=== PATIENT | male | born 1945 | race Asian ===

== ENCOUNTER 2017-06-14 07:54 | Emergency (ER) | payer MEDICARE, OTHER ==
[~2017-06-14] VITALS: Ht 167.6 cm; Wt 72.6 kg
--- NOTE | 2017-06-14 08:16 | NUR ---
TO ED DT PT UNABLE TO URINATE FOR 3-4 HOURS. PATIENT CO PRESSURE LIKE PAIN ON LOWER ABDOMEN/BLADDER. PATIENT IS AFEBRILE. VSS
[2017-06-14] MEDS ORDERED: LIDOCAINE 2% JEL UROJET 10 ML MM ONE (08:18)
--- NOTE | 2017-06-14 08:38 | NUR ---
URINE SAMPLE COLLECTED SENT TO LAB
[2017-06-14 08:46] LABS: APPEARANCE,URINE CLEAR (CLEAR); BILIRUBIN,URINE NEGATIVE (NEGATIVE); BLOOD, URINE TRACE Ery/uL (NEGATIVE); COLOR,URINE YELLOW (YELLOW); KETONES,URINE NEGATIVE (NEGATIVE); LEUKOCYTE ESTERASE ,URINE NEGATIVE (NEGATIVE); NITRITE, URINE NEGATIVE (NEGATIVE); PROTEIN,URINE NEGATIVE (NEGATIVE); UGLUCOSE NEGATIVE (NEGATIVE); UROBILINOGEN,URINE 0.2 EU/dL (0.2)
[2017-06-14 09:09] LABS: SQUAMOUS EPITHELIAL CELL,UR 0-2 /HPF (None Seen); WBC,URINE 0-2 /HPF (0-3)
[2017-06-14 09:10] LABS: BACTERIA,URINE Rare /HPF (None Seen)
[2017-06-14 10:01] VITALS: BP 137/84
== END 2017-06-14 10:10 | disposition home or self-care (01) ==
LOC: ER 07:59
DX: R33.9 Retention of urine, unspecified (principal)
CPT/HCPCS: 81000-TC; 87086-TC; A4606; J3490; Z7610

== ENCOUNTER 2017-06-16 07:42 | Emergency (ER) | payer MEDICARE, OTHER ==
[~2017-06-16] VITALS: Ht 167.6 cm; Wt 72.6 kg
[2017-06-16 07:47] VITALS: BP 116/59
== END 2017-06-16 08:39 | disposition home or self-care (01) ==
LOC: ER 07:46
DX: N39.0 Urinary tract infection, site not specified (principal)
CPT/HCPCS: 99281; A4606; Z7502; Z7610

== ENCOUNTER 2018-11-27 09:05 | Emergency (ER) | payer MEDICARE, OTHER ==
[~2018-11-27] VITALS: Ht 167.6 cm; Wt 70.8 kg
[2018-11-27 09:51] VITALS: BP 134/77
--- NOTE | 2018-11-27 10:00 | NUR ---
TARIQ CATH REMOVE. NO NOTED PAIN OR BLEEDING.
== END 2018-11-27 10:19 | disposition home or self-care (01) ==
LOC: ER 09:06
DX: Z46.6 Encounter for fitting and adjustment of urinary device (principal); Z60.2 Problems related to living alone
CPT/HCPCS: 99281; A4606; Z7502

== ENCOUNTER 2020-04-19 14:27 | Emergency (ER) | payer MEDICARE, OTHER ==
[~2020-04-19] VITALS: Ht 167.6 cm; Wt 72.6 kg
[2020-04-19 14:43] VITALS: BP 115/70
--- NOTE | 2020-04-19 14:46 | NUR ---
THE PATIENT WENT TO ER TODAY - TO HAVE HIS TARIQ REMOVED
--- NOTE | 2020-04-19 14:47 | NUR ---
F/C REMOVED. PT TOLERATED PROCEDURE WELL.
--- NOTE | 2020-04-19 15:15 | NUR ---
D/C HOME IN STABLE CONDITION.
== END 2020-04-19 15:17 | disposition home or self-care (01) ==
LOC: ER 14:32
DX: R33.9 Retention of urine, unspecified (principal); Z46.6 Encounter for fitting and adjustment of urinary device; Z60.2 Problems related to living alone

== ENCOUNTER 2020-06-16 04:08 | Emergency (ER) | payer MEDICARE, OTHER ==
[~2020-06-16] VITALS: Ht 167.6 cm; Wt 72.6 kg
--- NOTE | 2020-06-16 04:15 | NUR ---
BIBSELF C/O URINARY RETENTION AND DYSURIA X2HR FINISHING INSPECTOR
[2020-06-16 04:47] LABS: APPEARANCE,URINE CLEAR (CLEAR); BILIRUBIN,URINE NEGATIVE (NEGATIVE); BLOOD, URINE SMALL Ery/uL (NEGATIVE); COLOR,URINE YELLOW (YELLOW); KETONES,URINE NEGATIVE (NEGATIVE); LEUKOCYTE ESTERASE ,URINE NEGATIVE (NEGATIVE); NITRITE, URINE NEGATIVE (NEGATIVE); PROTEIN,URINE NEGATIVE (NEGATIVE); UGLUCOSE NEGATIVE (NEGATIVE); UROBILINOGEN,URINE 0.2 EU/dL (0.2)
--- NOTE | 2020-06-16 05:27 | NUR ---
Patient discharged to home in stable condition. Written and verbal after care instructions given. Patient verbalizes understanding of instruction. ambulatory with a steady gait noted. pt aaox4 no acute distress noted, resp even and unlabored. f/c converted to a leg bag per pt request.
[2020-06-16 05:28] VITALS: BP 137/76
== END 2020-06-16 05:29 | disposition home or self-care (01) ==
LOC: ER 04:10
DX: R33.9 Retention of urine, unspecified (principal); Z60.2 Problems related to living alone
CPT/HCPCS: 81000-TC

== ENCOUNTER 2020-06-19 09:21 | Emergency (ER) | payer MEDICARE, OTHER ==
[~2020-06-19] VITALS: Ht 167.6 cm; Wt 72.6 kg
[2020-06-19 09:26] VITALS: BP 152/85
--- NOTE | 2020-06-19 09:28 | NUR ---
AT BEDSIDE FOR EVAL.
--- NOTE | 2020-06-19 09:30 | NUR ---
TARIQ CATH REMOVE. PT ABLE TO URINATE. AWARE.
--- NOTE | 2020-06-19 09:37 | NUR ---
Patient discharged to home in stable condition. Written and verbal after care instructions given. Patient verbalizes understanding of instruction.
== END 2020-06-19 09:40 | disposition home or self-care (01) ==
LOC: ER 09:25
DX: Z46.6 Encounter for fitting and adjustment of urinary device (principal); R33.9 Retention of urine, unspecified; Z60.2 Problems related to living alone

== ENCOUNTER 2020-07-29 06:51 | Emergency (ER) | payer MEDICARE, OTHER ==
[~2020-07-29] VITALS: Ht 167.6 cm; Wt 72.6 kg
[2020-07-29 06:51] VITALS: BP 123/85
[2020-07-29] MEDS ORDERED: LIDOCAINE 2% JEL UROJET 10 ML MM ONE (07:08)
--- NOTE | 2020-07-29 07:12 | NUR ---
PATIENT CAME TO ER BED 16 C/O URINARY RETENTION WITH VERY MINIMAL URINE OUTPUT. PATIENT IS REQUESTING A CATHETER FOR RELIEF. PATIENT IS AAOX4. AMBULATORY WITH A STEADY GAIT. BREATHING EVENLY AND UNLABORED ON ROOM AIR.
[2020-07-29 08:08] LABS: APPEARANCE,URINE CLEAR (CLEAR); BILIRUBIN,URINE NEGATIVE (NEGATIVE); BLOOD, URINE NEGATIVE Ery/uL (NEGATIVE); COLOR,URINE YELLOW (YELLOW); KETONES,URINE NEGATIVE (NEGATIVE); LEUKOCYTE ESTERASE ,URINE NEGATIVE (NEGATIVE); NITRITE, URINE NEGATIVE (NEGATIVE); PROTEIN,URINE NEGATIVE (NEGATIVE); UGLUCOSE NEGATIVE (NEGATIVE); UROBILINOGEN,URINE 0.2 EU/dL (0.2)
--- NOTE | 2020-07-29 08:23 | NUR ---
Patient discharged to home in stable condition. Written and verbal after care instructions given. Patient verbalizes understanding of instruction.
[2020-07-30] MEDS ORDERED: Magnesium 1GM/D5W 100ML PREMIX 0 ML IV ONE (11:01)
[2020-07-30] MEDS ORDERED: NITROGLYCERIN PACKET 1 GM PACKET ONE (11:01)
[2020-07-30] MEDS ORDERED: methylPREDNISolone SOD SUCC 125 MG/2ML VIAL ONE (11:01)
[2020-07-30] MEDS ORDERED: FUROSEMIDE 40 MG/4 ML VIAL ONE (11:01)
== END 2020-07-29 08:25 | disposition home or self-care (01) ==
LOC: ER 06:55
DX: R33.9 Retention of urine, unspecified (principal); Z60.2 Problems related to living alone
CPT/HCPCS: 51702; 81001; 99284; J3490; 81000-TC; J1940; J2930; J3475

== ENCOUNTER 2020-07-31 08:09 | Emergency (ER) | payer MEDICARE, OTHER ==
[~2020-07-31] VITALS: Ht 167.6 cm; Wt 72.6 kg
--- NOTE | 2020-07-31 08:20 | NUR ---
PT CAME FROM HOME, HERE FOR TARIQ CATHETER REMOVAL, WAS HERE 2 DAYS AGO. MD AT BEDSIDE WITH VERBAL ORDER TO REMOVE TARIQ CATHETER. NOTED
--- NOTE | 2020-07-31 08:23 | NUR ---
TARIQ CATHETER REMOVED. AWAITING FOR PT TO URINATE
[2020-07-31 09:15] VITALS: BP 119/75
== END 2020-07-31 09:38 | disposition home or self-care (01) ==
LOC: ER 08:11
DX: R33.9 Retention of urine, unspecified (principal); Z60.2 Problems related to living alone

== ENCOUNTER 2021-03-23 09:23 | Emergency (ER) | payer MEDICARE, OTHER ==
[~2021-03-23] VITALS: Ht 167.6 cm; Wt 72.6 kg
--- NOTE | 2021-03-23 09:31 | NUR ---
PT TO ED BED 13 C/O BLADDER FULLNESS AND PAIN SINCE 3AM. STATES UNABLE TO URINATE SINCE. PT SEEN IN ED MULTIPLE TIME FOR SAME REASON. PT IS AAO, NAD NOTED. AWAITING MD BROWN.
--- NOTE | 2021-03-23 10:01 | NUR ---
DR MAXWELL AT BEDSIDE FOR EVAL.
--- NOTE | 2021-03-23 10:15 | NUR ---
F/C CATHETER INSERTED. URINE SAMPLE COLLECTED AND SENT.
[2021-03-23 10:28] LABS: BASOPHILS % (AUTO) 0.6 % (0.0-2.0); EOSINOPHILS % (AUTO) 1.1 % (0.0-6.0); HEMATOCRIT 40 % (39-51); HEMOGLOBIN 13.5 g/dL (13.5-17.5); LYMPHOCYTES % (AUTO) 31.5 % (20.0-44.0); MEAN CORPUSCULAR HGB CONC 34 g/dl (31.0-36.0); MEAN CORPUSCULAR VOLUME 96 fL (80-96); MONOCYTES # (AUTO) 0.4 /CMM (0.1-1.30); MONOCYTES % (AUTO) 6.8 % (2.0-12.0); NEUTROPHILS # (AUTO) 3.8 /CMM (1.8-8.9); PLATELET COUNT (AUTO) 227 /CMM (150-450); RED BLOOD CELL COUNT(AUTO) 4.18 MIL/uL (4.5-6.0); WHITE BLOOD COUNT (AUTO) 6.4 K/uL (4.3-11.0)
[2021-03-23 10:29] LABS: BILIRUBIN,URINE Negative (NEGATIVE); COLOR,URINE YELLOW (YELLOW); LEUKOCYTE ESTERASE ,URINE Negative (NEGATIVE); NITRITE, URINE Negative (NEGATIVE); PROTEIN,URINE Negative (NEGATIVE); UGLUCOSE Negative (NEGATIVE); UROBILINOGEN,URINE 0.2 EU/dL (0.2)
[2021-03-23 10:32] LABS: CALCIUM, SERUM 7.9 mg/dL (8.5-10.1); CREATININE 1.1 mg/dL (0.6-1.3); POTASSIUM 4.2 mmol/L (3.5-5.1)
[2021-03-23 10:34] LABS: BACTERIA,URINE None seen /HPF (None Seen); SQUAMOUS EPITHELIAL CELL,UR Few /HPF (None Seen); WBC,URINE 0-2 /HPF (0-3)
[2021-03-23 12:26] VITALS: BP 132/77
--- NOTE | 2021-03-23 12:26 | NUR ---
Patient discharged to home in stable condition. Written and verbal after care instructions given. Patient verbalizes understanding of instruction. pt discharge home w/ f/c and leg bag.
== END 2021-03-23 12:27 | disposition home or self-care (01) ==
LOC: ER 09:27
DX: R33.9 Retention of urine, unspecified (principal); Z60.2 Problems related to living alone
CPT/HCPCS: 36415; 80048-TC; 81001; 85025-TC

== ENCOUNTER 2021-03-25 10:19 | Emergency (ER) | payer MEDICARE, OTHER ==
[~2021-03-25] VITALS: Ht 167.6 cm; Wt 72.6 kg
[2021-03-25 10:21] VITALS: BP 135/81
--- NOTE | 2021-03-25 10:40 | NUR ---
TARIQ CATH REMOVED ORDERED BY GENE PAIZ.
--- NOTE | 2021-03-25 10:47 | NUR ---
Patient discharged to home in stable condition. Written and verbal after care instructions given. Patient verbalizes understanding of instruction.
== END 2021-03-25 10:47 | disposition home or self-care (01) ==
LOC: ER 10:19
DX: Z46.6 Encounter for fitting and adjustment of urinary device (principal); Z60.2 Problems related to living alone

== ENCOUNTER 2021-05-27 06:01 | Emergency (ER) | payer MEDICARE, OTHER ==
[~2021-05-27] VITALS: Ht 167.6 cm; Wt 72.6 kg
[2021-05-27 06:39] VITALS: BP 134/69
== END 2021-05-27 06:43 | disposition home or self-care (01) ==
LOC: ER 06:01
DX: R33.9 Retention of urine, unspecified (principal); Z60.2 Problems related to living alone

== ENCOUNTER 2021-05-29 08:17 | Emergency (ER) | payer MEDICARE, OTHER ==
[~2021-05-29] VITALS: Ht 167.6 cm; Wt 72.6 kg
[2021-05-29 08:25] VITALS: BP 124/69
--- NOTE | 2021-05-29 08:42 | NUR ---
Patient discharged to home in stable condition. Written and verbal after care instructions given. Patient verbalizes understanding of instruction.
== END 2021-05-29 08:42 | disposition home or self-care (01) ==
LOC: ER 08:17
DX: Z46.6 Encounter for fitting and adjustment of urinary device (principal); R33.9 Retention of urine, unspecified; Z60.2 Problems related to living alone

== ENCOUNTER 2021-09-14 08:08 | Emergency (ER) | payer MEDICARE, OTHER ==
[~2021-09-14] VITALS: Ht 167.6 cm; Wt 72.6 kg
--- NOTE | 2021-09-14 08:08 | NUR ---
BIBSELF C/O URINARY RETENTION SINCE 299 TODAY, PAIN OF 8/10. VITAL SIGNS WIHTIN NORMAL LIMITS. BREATHING IS REGULAR AND UNLABORED. PT SENT TO ER BED 6. WAITING FOR MD BROWN.
--- NOTE | 2021-09-14 08:40 | NUR ---
DR BRITT AT BEDSIDE
[2021-09-14 09:02] LABS: BASOPHILS % (AUTO) 0.6 % (0.0-2.0); EOSINOPHILS % (AUTO) 1.5 % (0.0-6.0); HEMATOCRIT 41 % (39-51); HEMOGLOBIN 13.8 g/dL (13.5-17.5); LYMPHOCYTES # (AUTO) 1.4 K/uL (0.8-4.8); LYMPHOCYTES % (AUTO) 22.8 % (20.0-44.0); MEAN CORPUSCULAR HGB CONC 34 g/dl (31.0-36.0); MEAN CORPUSCULAR VOLUME 96 fL (80-96); MONOCYTES # (AUTO) 0.5 K/uL (0.1-1.30); MONOCYTES % (AUTO) 8.3 % (2.0-12.0); NEUTROPHILS # (AUTO) 4.2 K/uL (1.8-8.9); NEUTROPHILS % (AUTO) 66.8 % (43.0-81.0); PLATELET COUNT (AUTO) 234 K/uL (150-450); WHITE BLOOD COUNT (AUTO) 6.3 K/uL (4.3-11.0)
--- NOTE | 2021-09-14 09:22 | NUR ---
URINARY CATHETER WITH LEG BAG WAS PLACED.
[2021-09-14 09:53] LABS: BILIRUBIN,URINE Negative (NEGATIVE); COLOR,URINE YELLOW (YELLOW); LEUKOCYTE ESTERASE ,URINE Negative (NEGATIVE); NITRITE, URINE Negative (NEGATIVE); PH,URINE 5.5 (5.0-8.0); PROTEIN,URINE Negative (NEGATIVE); UGLUCOSE Negative (NEGATIVE); UROBILINOGEN,URINE 0.2 EU/dL (0.2)
--- NOTE | 2021-09-14 10:12 | NUR ---
Patient discharged to home in stable condition. Written and verbal after care instructions given. Patient verbalizes understanding of instruction.
[2021-09-14 10:13] VITALS: BP 122/81
[2021-09-14 10:18] LABS: BACTERIA,URINE Few /HPF (None Seen); SQUAMOUS EPITHELIAL CELL,UR Few /HPF (None Seen); WBC,URINE 0-2 /HPF (0-3)
== END 2021-09-14 10:14 | disposition home or self-care (01) ==
LOC: ER 08:39
DX: R33.9 Retention of urine, unspecified (principal); Z60.2 Problems related to living alone
CPT/HCPCS: 36415; 80048-TC; 81001; 85025-TC

== ENCOUNTER 2021-09-16 13:48 | Emergency (ER) | payer MEDICARE, OTHER ==
[~2021-09-16] VITALS: Ht 167.6 cm; Wt 72.6 kg
[2021-09-16 13:59] VITALS: BP 126/68
--- NOTE | 2021-09-16 14:28 | NUR ---
REMOVED TARIQ CATHETER PER ERMD ORDER, PT NICOLASA WELL.
--- NOTE | 2021-09-16 14:38 | NUR ---
Patient discharged to home in stable condition. Written and verbal after care instructions given. Patient verbalizes understanding of instruction.
== END 2021-09-16 14:38 | disposition home or self-care (01) ==
LOC: ER 13:52
DX: Z46.6 Encounter for fitting and adjustment of urinary device (principal); R33.9 Retention of urine, unspecified; Z60.2 Problems related to living alone

== ENCOUNTER 2021-09-23 04:45 | Emergency (ER) | payer MEDICARE, OTHER ==
[~2021-09-23] VITALS: Ht 175.3 cm; Wt 86.2 kg
[2021-09-23] MEDS ORDERED: LIDOCAINE 2% JEL UROJET 10 ML MM ONE (05:26)
--- NOTE | 2021-09-23 05:30 | NUR ---
BIB SELF PT A/O X 3 C/O URINE RETENTION SINCE 2 AM. PT REQUESTING MALE NURSE FOR TARIQ CATH PLACEMENT
--- NOTE | 2021-09-23 05:45 | NUR ---
TARIQ CATHETER INSERTED PER MD ORDER, PATENT AND DRAINING TO A CLEAR, YELLOW OUTPUT, TOTAL OF 500 ML COLLECTED. ASEPTIC TECHNIQUE WAS OBSERVED. URINE SAMPLE COLLECTED AND SENT TO LAB.
--- NOTE | 2021-09-23 05:51 | NUR ---
LAB AT BEDSIDE
[2021-09-23 06:18] LABS: BILIRUBIN,URINE NEGATIVE (NEGATIVE); COLOR,URINE YELLOW (YELLOW); LEUKOCYTE ESTERASE ,URINE TRACE (NEGATIVE); NITRITE, URINE NEGATIVE (NEGATIVE); PROTEIN,URINE NEGATIVE (NEGATIVE); UGLUCOSE NEGATIVE (NEGATIVE); UROBILINOGEN,URINE 0.2 EU/dL (0.2)
--- NOTE | 2021-09-23 06:30 | NUR ---
PT VOIDED 600 ML OF YELLOW URINE. DECLINES BEING CONNECTED TO B/P CUFF
[2021-09-23 06:40] LABS: BACTERIA,URINE None seen /HPF (None Seen); RBC,URINE F /HPF (0-2); SQUAMOUS EPITHELIAL CELL,UR None Seen /HPF (None Seen); WBC,URINE TOO NUMEROUS TO COUN /HPF (0-3)
[2021-09-23 06:46] LABS: CALCIUM, SERUM 7.8 mg/dL (8.5-10.1); CREATININE 1.1 mg/dL (0.6-1.3)
--- NOTE | 2021-09-23 07:37 | NUR ---
REPORT GIVEN TO ESTER SCOTT FOR CA[facility]O
[2021-09-23] MEDS ORDERED: TAMS-12 PO (08:35)
[2021-09-23] MEDS ORDERED: CIPR-262 PO (08:35)
--- NOTE | 2021-09-23 08:39 | NUR ---
Patient discharged to home in stable condition. Written and verbal after care instructions given. Patient verbalizes understanding of instruction.
[2021-09-23 08:40] VITALS: BP 121/67
== END 2021-09-23 08:40 | disposition home or self-care (01) ==
LOC: ER 04:59
DX: R33.9 Retention of urine, unspecified (principal)
CPT/HCPCS: 36415; 80048; 81001; 87077; 87086; 99283; J3490

== ENCOUNTER 2021-09-27 09:44 | Emergency (ER) | payer MEDICARE, OTHER ==
[~2021-09-27] VITALS: Ht 175.3 cm; Wt 86.2 kg
[~2021-09-27 09:44] MED LIST: CIPR-262 PO; TAMS-12 PO
[2021-09-27 10:01] VITALS: BP 113/66
--- NOTE | 2021-09-27 10:01 | NUR ---
REMOVAL OF TARIQ CATH, DENIES PAIN/DISCOMFORT, NO OTHER MEDICAL COMPLAIN. PT VITALS WITHIN NORMAL LIMITS. BREATHING IS EVEN AND UNLABORED
--- NOTE | 2021-09-27 10:28 | NUR ---
Patient discharged to home in stable condition. Written and verbal after care instructions given. Patient verbalizes understanding of instruction.
== END 2021-09-27 10:28 | disposition home or self-care (01) ==
LOC: ER 09:47
DX: Z46.6 Encounter for fitting and adjustment of urinary device (principal); Z60.2 Problems related to living alone

== ENCOUNTER 2021-12-13 09:15 | Emergency (ER) | payer MEDICARE, OTHER ==
[~2021-12-13] VITALS: Ht 167.6 cm; Wt 72.6 kg
--- NOTE | 2021-12-13 09:46 | NUR ---
PATIENT IS CURRENTLY HAVING URINARY RETENTION. INSERTED TARIQ CATHETER 16 Fr. ORDERED.
[2021-12-13 10:25] VITALS: BP 123/72
--- NOTE | 2021-12-13 10:27 | NUR ---
Patient discharged to home in stable condition. Written and verbal after care instructions given. Patient verbalizes understanding of instruction.
== END 2021-12-13 10:28 | disposition home or self-care (01) ==
LOC: ER 09:16
DX: R33.9 Retention of urine, unspecified (principal); Z60.2 Problems related to living alone; Z79.899 Other long term (current) drug therapy

== ENCOUNTER 2021-12-16 15:55 | Emergency (ER) | payer MEDICARE, OTHER ==
[~2021-12-16] VITALS: Ht 167.6 cm; Wt 72.6 kg
[2021-12-16 16:14] VITALS: BP 105/61
--- NOTE | 2021-12-16 16:30 | NUR ---
TARIQ CATH REMOVED.
--- NOTE | 2021-12-16 16:35 | NUR ---
Patient discharged to home in stable condition. Written and verbal after care instructions given. Patient verbalizes understanding of instruction.
== END 2021-12-16 16:36 | disposition home or self-care (01) ==
LOC: ER 15:58
DX: Z46.6 Encounter for fitting and adjustment of urinary device (principal); Z60.2 Problems related to living alone

== ENCOUNTER 2022-03-23 23:51 | Emergency (ER) | payer MEDICARE, OTHER ==
[~2022-03-23] VITALS: Ht 167.6 cm; Wt 72.6 kg
[2022-03-24] MEDS ORDERED: LIDOCAINE 2% JEL UROJET 10 ML MM ONE ×2 (00:51→01:00)
--- NOTE | 2022-03-24 01:24 | NUR ---
TARIQ CATHETER INSERTED AND DRAINING WELL. URINE OUTPUT 500ML
--- NOTE | 2022-03-24 01:24 | NUR ---
URINE COLLECTED AND SENT TO LAB
[2022-03-24 01:53] LABS: BILIRUBIN,URINE NEGATIVE (NEGATIVE); COLOR,URINE YELLOW (YELLOW); LEUKOCYTE ESTERASE ,URINE LARGE (NEGATIVE); NITRITE, URINE POSITIVE (NEGATIVE); PH,URINE 6.5 (5.0-8.0); PROTEIN,URINE NEGATIVE (NEGATIVE); UGLUCOSE NEGATIVE (NEGATIVE); UROBILINOGEN,URINE 0.2 EU/dL (0.2)
[2022-03-24] MEDS ORDERED: NITR-84 PO (02:26)
--- NOTE | 2022-03-24 02:29 | NUR ---
Patient discharged to home in stable condition. Written and verbal after care instructions given. Patient verbalizes understanding of instruction. LEG BAG PROVIDED
[2022-03-24 02:30] VITALS: BP 140/77
[2022-03-24] MEDS ORDERED: NITROFURANTOIN/MONOHYDRATE MACROCRYSTALS 100 MG CAPSULE PO ONE (02:30)
[2022-03-24] MEDS ORDERED: NITROFURANTOIN/MONOHYDRATE MACROCRYSTALS 100 MG CAPSULE ONE (02:30)
[2022-03-24 06:42] LABS: RBC,URINE NONE SEEN /HPF (0-2); WBC,URINE TOO NUMEROUS TO COUN /HPF (0-3)
[2022-03-24 06:43] LABS: BACTERIA,URINE Few /HPF (None Seen); SQUAMOUS EPITHELIAL CELL,UR None Seen /HPF (None Seen)
== END 2022-03-24 02:47 | disposition home or self-care (01) ==
LOC: ER 03-24 00:11
DX: R33.9 Retention of urine, unspecified (principal); N30.90 Cystitis, unspecified without hematuria; Z60.2 Problems related to living alone; Z79.899 Other long term (current) drug therapy
CPT/HCPCS: 51702; 81001; 87086; 99284; J3490

== ENCOUNTER 2022-03-26 14:25 | Emergency (ER) | payer MEDICARE, OTHER ==
[~2022-03-26] VITALS: Ht 167.6 cm; Wt 72.6 kg
[~2022-03-26 14:25] MED LIST changes: +NITR-84 PO
[2022-03-26 16:20] VITALS: BP 127/71
--- NOTE | 2022-03-26 16:54 | NUR ---
avelar, DC - no complications
--- NOTE | 2022-03-26 16:55 | NUR ---
Patient discharged to home in stable condition. Written and verbal after care instructions given. Patient verbalizes understanding of instruction.
== END 2022-03-26 16:55 | disposition home or self-care (01) ==
LOC: ER 14:27
DX: R33.9 Retention of urine, unspecified (principal); Z46.6 Encounter for fitting and adjustment of urinary device; Z60.2 Problems related to living alone; Z79.899 Other long term (current) drug therapy

== ENCOUNTER 2022-04-08 02:33 | Emergency (ER) | payer MEDICARE, OTHER ==
[~2022-04-08] VITALS: Ht 167.6 cm; Wt 72.6 kg
--- NOTE | 2022-04-08 02:40 | NUR ---
SIMBA REQUESTING TARIQ CATH REPLACEMENT STATED HIS TARIQ CATH MALFUNCTIONED. PT A/OX4. TOLERATING R/A WELL WITH NO SOB. SAFETY MEASURES IN PLACE.
[2022-04-08] MEDS ORDERED: LIDOCAINE 2% JEL UROJET 10 ML MM ONE (02:42)
--- NOTE | 2022-04-08 02:58 | NUR ---
F/C 14FR INSERTED WITH URINE RETURN.
--- NOTE | 2022-04-08 03:19 | NUR ---
Patient discharged to home in stable condition. Written and verbal after care instructions given. Patient verbalizes understanding of instruction. PT ambulatory with a steady gait
[2022-04-08 03:45] VITALS: BP 128/71
== END 2022-04-08 03:21 | disposition home or self-care (01) ==
LOC: ER 02:35
DX: R33.9 Retention of urine, unspecified (principal); Z60.2 Problems related to living alone; Z79.899 Other long term (current) drug therapy
CPT/HCPCS: 51702; 99284; J3490

== ENCOUNTER 2022-04-10 10:25 | Emergency (ER) | payer MEDICARE, OTHER ==
[~2022-04-10] VITALS: Ht 167.6 cm; Wt 72.6 kg
[2022-04-10 10:30] VITALS: BP 128/71
--- NOTE | 2022-04-10 10:30 | NUR ---
TO ER BED 1. BIBS FOR TARIQ CATHETER LEG BAG REMOVAL, PLACED 2 DAYS AGO. VITALS WITHIN NORMAL LIMITS.
--- NOTE | 2022-04-10 10:57 | NUR ---
Patient discharged to home in stable condition. Written and verbal after care instructions given. Patient verbalizes understanding of instruction.
== END 2022-04-10 10:57 | disposition home or self-care (01) ==
LOC: ER 10:39
DX: R33.9 Retention of urine, unspecified (principal); Z46.6 Encounter for fitting and adjustment of urinary device; Z60.2 Problems related to living alone; Z79.899 Other long term (current) drug therapy

== ENCOUNTER 2022-10-22 07:11 | Emergency (ER) | payer MEDICARE, OTHER ==
[~2022-10-22] VITALS: Ht 167.6 cm; Wt 72.6 kg
[2022-10-22] MEDS ORDERED: LIDOCAINE 2% JEL UROJET 10 ML MM ONE (07:31)
[2022-10-22 08:39] VITALS: BP 124/82
== END 2022-10-22 08:42 | disposition home or self-care (01) ==
LOC: ER 07:23
DX: R33.9 Retention of urine, unspecified (principal); Z60.2 Problems related to living alone; Z79.899 Other long term (current) drug therapy
CPT/HCPCS: 99284; 51702; J3490

== ENCOUNTER 2022-10-25 13:46 | Emergency (ER) | payer MEDICARE, OTHER ==
[~2022-10-25] VITALS: Ht 167.6 cm; Wt 72.6 kg
[2022-10-25 14:09] VITALS: BP 130/73
--- NOTE | 2022-10-25 14:52 | NUR ---
TARIQ CATHERTER DISCONTINUED, PT TOLERATED PROCEDURE WELL.
--- NOTE | 2022-10-25 14:53 | NUR ---
Patient discharged to home in stable condition. Written and verbal after care instructions given. Patient verbalizes understanding of instruction.
== END 2022-10-25 14:55 | disposition home or self-care (01) ==
LOC: ER 13:56
DX: N40.1 Benign prostatic hyperplasia with lower urinary tract symptoms (principal); Z60.2 Problems related to living alone; Z79.899 Other long term (current) drug therapy

== ENCOUNTER 2022-11-07 09:05 | Emergency (ER) | payer MEDICARE, OTHER ==
[~2022-11-07] VITALS: Ht 167.6 cm; Wt 72.6 kg
[2022-11-07 09:05] VITALS: BP 141/88
--- NOTE | 2022-11-07 09:05 | NUR ---
TO ER BED 4. BIBS C/O URINARY RETENTION SINCE 0200 THIS MORNING, LOWER ABDOMINAL PAIN 7/10 ON PAIN SCALE. AWAITING MD BROWN.
--- NOTE | 2022-11-07 09:29 | NUR ---
DR SPANGLER AT BEDSIDE
[2022-11-07] MEDS ORDERED: LIDOCAINE 2% JEL UROJET 10 ML MM ONE (09:50)
--- NOTE | 2022-11-07 10:12 | NUR ---
avelar catheter drained and replaced .
--- NOTE | 2022-11-07 10:13 | NUR ---
Patient discharged to home in stable condition. Written and verbal after care instructions given. Patient verbalizes understanding of instruction.
[2022-11-08] MEDS ORDERED: TAMS-12 PO (14:47)
== END 2022-11-07 10:13 | disposition home or self-care (01) ==
LOC: ER 09:13
DX: R33.9 Retention of urine, unspecified (principal); Z60.2 Problems related to living alone; Z79.899 Other long term (current) drug therapy
CPT/HCPCS: 99284; 51702; J3490

== ENCOUNTER → 2022-11-08 | Emergency (ER) | payer MEDICARE, OTHER ==
[~2022-11-08] VITALS: Ht 167.6 cm; Wt 73.5 kg
--- NOTE | 2022-11-08 14:35 | NUR ---
RECEIVED PT IN ROOM 1, STANDING UP, REFUSING TO LAY DOWN IN BED, A/Ox4, REQUESING TO TAKE HIS TARIQ OUT , NOTIFIED
[2022-11-08 14:39] VITALS: BP 111/67
--- NOTE | 2022-11-08 14:45 | NUR ---
TARQI OUT PER DR ORR ORDER
--- NOTE | 2022-11-08 15:12 | NUR ---
Patient discharged to home in stable condition. Written and verbal after care instructions given. Patient verbalizes understanding of instruction.
== END | disposition home or self-care (01) ==
LOC: ER 14:26
DX: R33.9 Retention of urine, unspecified (principal); Z60.2 Problems related to living alone; Z79.899 Other long term (current) drug therapy

== ENCOUNTER 2022-11-21 05:19 | Emergency (ER) | payer MEDICARE, OTHER ==
[~2022-11-21] VITALS: Ht 167.6 cm; Wt 72.6 kg
[2022-11-21] MEDS ORDERED: LIDOCAINE 2% JEL UROJET 10 ML MM ONE (05:46)
--- NOTE | 2022-11-21 05:48 | NUR ---
BIBS C/O URINARY RETENTION AND LOWER ABD PAIN X 1 AM. HX URINE RETENTION. PT IS ALERT AND ORIENTED. RR EVEN AND NON LABORED. CONNECTED TO MONITOR
--- NOTE | 2022-11-21 06:02 | NUR ---
DR. YOSELIN PAIZ AT PT'S BEDSIDE FOR EVAL
--- NOTE | 2022-11-21 06:33 | NUR ---
Pt ok to be discharge per Dr Carroll. Patient discharged to home in stable condition. Written and verbal after care instructions given. Patient verbalizes understanding of instruction.Patient is awake and alert to self, day, and place. pt ambulatory with a steady gait
[2022-11-21 06:36] VITALS: BP 119/68
== END 2022-11-21 06:37 | disposition home or self-care (01) ==
LOC: ER 05:23
DX: R33.9 Retention of urine, unspecified (principal); Z60.2 Problems related to living alone; Z79.899 Other long term (current) drug therapy
CPT/HCPCS: 99284; 51702; J3490

== ENCOUNTER 2022-11-24 16:00 | Emergency (ER) | payer MEDICARE, OTHER ==
[~2022-11-24] VITALS: Ht 167.6 cm; Wt 63.5 kg
--- NOTE | 2022-11-24 16:27 | NUR ---
PT IN BED HX OF BPH HAS TARIQ CATHETER CAME TO GET IT REMOVED. PT HAS NOT YET FOLLOWED UP WITH HIS UROLOGIST BUT IS STILL REQUESTING THAT THE TARIQ BE REMOVED
[2022-11-24 17:12] VITALS: BP 146/86
== END 2022-11-24 17:13 | disposition home or self-care (01) ==
LOC: ER 16:04
DX: N40.1 Benign prostatic hyperplasia with lower urinary tract symptoms (principal); R33.9 Retention of urine, unspecified; Z60.2 Problems related to living alone; Z79.899 Other long term (current) drug therapy

== ENCOUNTER 2022-12-04 00:46 | Emergency (ER) | payer MEDICARE, OTHER ==
[~2022-12-04] VITALS: Ht 167.6 cm; Wt 72.6 kg
[2022-12-04 00:52] VITALS: BP 149/76
[2022-12-04] MEDS ORDERED: LIDOCAINE 2% JEL UROJET 10 ML MM ONE (01:13)
[2022-12-04 04:15] LABS: BILIRUBIN,URINE NEGATIVE (NEGATIVE); COLOR,URINE YELLOW (YELLOW); LEUKOCYTE ESTERASE ,URINE NEGATIVE (NEGATIVE); NITRITE, URINE NEGATIVE (NEGATIVE); PH,URINE 5.5 (5.0-8.0); PROTEIN,URINE NEGATIVE (NEGATIVE); UGLUCOSE 1+ mg/dL (NEGATIVE); UROBILINOGEN,URINE 0.2 EU/dL (0.2)
[2022-12-04 04:16] LABS: CALCIUM, SERUM 7.6 mg/dL (8.5-10.1); CREATININE 1.3 mg/dL (0.6-1.3); POTASSIUM 4.1 mmol/L (3.5-5.1)
[2022-12-04 04:55] LABS: RED BLOOD CELL COUNT(AUTO) 3.77 MIL/uL (4.5-6.0); WHITE BLOOD COUNT (AUTO) 6.2 K/uL (4.3-11.0)
[2022-12-04 04:56] LABS: BACTERIA,URINE Rare /HPF (None Seen)
[2022-12-04 04:56] LABS: BASOPHILS % (AUTO) 0.4 % (0.0-2.0); EOSINOPHILS % (AUTO) 2.8 % (0.0-6.0); HEMATOCRIT 36 % (39-51); HEMOGLOBIN 12.1 g/dL (13.5-17.5); LYMPHOCYTES # (AUTO) 1.2 K/uL (0.8-4.8); LYMPHOCYTES % (AUTO) 19.9 % (20.0-44.0); MEAN CORPUSCULAR HGB CONC 33 g/dl (31.0-36.0); MEAN CORPUSCULAR VOLUME 97 fL (80-96); MONOCYTES # (AUTO) 0.7 K/uL (0.1-1.30); MONOCYTES % (AUTO) 11.4 % (2.0-12.0); NEUTROPHILS # (AUTO) 4.1 K/uL (1.8-8.9); NEUTROPHILS % (AUTO) 65.5 % (43.0-81.0); PLATELET COUNT (AUTO) 251 K/uL (150-450)
[2022-12-04 04:57] LABS: SQUAMOUS EPITHELIAL CELL,UR Few /HPF (None Seen)
--- NOTE | 2022-12-04 05:11 | NUR ---
[facility] DOWNTIME PT LEFT DURING DOWNTIME, PT LEFT INS TABLE CONDITION AT 0245. DC INSTRUCTIONS GIVEN
== END 2022-12-04 02:45 | disposition home or self-care (01) ==
LOC: ER 00:47
DX: R33.9 Retention of urine, unspecified (principal); N40.1 Benign prostatic hyperplasia with lower urinary tract symptoms; R73.9 Hyperglycemia, unspecified; R78.89 Finding of other specified substances, not normally found in blood; Z79.899 Other long term (current) drug therapy; Z60.2 Problems related to living alone
CPT/HCPCS: 99284; 51702; 85025; 80048; 81001; 36415; J3490

== ENCOUNTER 2023-01-30 05:21 | Emergency (ER) | payer MEDICARE, OTHER ==
[~2023-01-30] VITALS: Ht 167.6 cm; Wt 68.0 kg
--- NOTE | 2023-01-30 06:00 | NUR ---
BIBS FOR C/O URINARY RETENTION X 5 HOURS. PATIENT IS AAOX4, ABLE TO MAKE NEEDS KNOWN. PLACED COMFORTABLY IN BED.
--- NOTE | 2023-01-30 06:21 | NUR ---
IFC F14 REINSERTED, ATTACHED TO LEG BAG. URINE SPECIMEN SENT TO LAB FOR URINALYSIS
[2023-01-30 06:48] LABS: BILIRUBIN,URINE NEGATIVE (NEGATIVE); COLOR,URINE YELLOW (YELLOW); LEUKOCYTE ESTERASE ,URINE 3+ (NEGATIVE); NITRITE, URINE NEGATIVE (NEGATIVE); PROTEIN,URINE NEGATIVE (NEGATIVE); UGLUCOSE NEGATIVE (NEGATIVE); UROBILINOGEN,URINE 0.2 EU/dL (0.2)
[2023-01-30 06:51] LABS: BACTERIA,URINE Few /HPF (None Seen); SQUAMOUS EPITHELIAL CELL,UR Moderate /HPF (None Seen)
[2023-01-30] MEDS ORDERED: CIPR-262 PO (06:58)
--- NOTE | 2023-01-30 07:05 | NUR ---
Patient discharged to home in stable condition. Written and verbal after care instructions given. Patient verbalizes understanding of instruction.
--- NOTE | 2023-01-30 07:22 | NUR ---
Patient discharged to home in stable condition. Written and verbal after care instructions given. Patient verbalizes understanding of instruction.
[2023-01-30 07:23] VITALS: BP 137/101
== END 2023-01-30 07:23 | disposition home or self-care (01) ==
LOC: ER 05:25
DX: R33.9 Retention of urine, unspecified (principal); N30.90 Cystitis, unspecified without hematuria; Z60.2 Problems related to living alone; Z79.899 Other long term (current) drug therapy
CPT/HCPCS: 81001; 87086-TC

== ENCOUNTER 2023-06-16 13:16 | Emergency (ER) | payer MEDICARE, OTHER ==
[~2023-06-16] VITALS: Ht 170.2 cm; Wt 66.2 kg
[~2023-06-16 13:16] MED LIST changes: +CEPH500C2 PO; +IBUP-1955 PO
[2023-06-16 13:21] VITALS: BP 105/60; TEMP 98.9; O2SAT 99
== END 2023-06-16 14:03 | disposition home or self-care (01) ==
LOC: ER 13:20
DX: Z46.6 Encounter for fitting and adjustment of urinary device (principal); Z60.2 Problems related to living alone

== ENCOUNTER 2023-07-27 16:12 | Emergency (ER) | payer MEDICARE, OTHER ==
[~2023-07-27] VITALS: Ht 167.6 cm; Wt 72.6 kg
[2023-07-27 17:04] VITALS: BP 138/68; TEMP 98.4
[2023-07-27 19:08] VITALS: O2SAT 100
== END 2023-07-27 19:09 | disposition home or self-care (01) ==
LOC: ER 16:19
DX: Z46.6 Encounter for fitting and adjustment of urinary device (principal); Z79.899 Other long term (current) drug therapy; Z60.2 Problems related to living alone

== ENCOUNTER 2023-08-30 14:32 | Emergency (ER) | payer MEDICARE, OTHER ==
[~2023-08-30] VITALS: Ht 167.6 cm; Wt 77.1 kg
[2023-08-30 14:46] VITALS: BP 126/72; TEMP 98.2; O2SAT 99
== END 2023-08-30 15:24 | disposition home or self-care (01) ==
LOC: ER 14:49
DX: Z46.6 Encounter for fitting and adjustment of urinary device (principal); Z60.2 Problems related to living alone

== ENCOUNTER 2023-09-05 23:21 | Emergency (ER) | payer MEDICARE, OTHER ==
[~2023-09-05] VITALS: Ht 167.6 cm; Wt 65.3 kg
[2023-09-06] MEDS ORDERED: LIDOCAINE 2% JEL UROJET 10 ML MM ONE (01:00)
[2023-09-06 01:43] LABS: APPEARANCE,URINE SLIGHTLY CLOUDY (CLEAR); BILIRUBIN,URINE NEGATIVE (NEGATIVE); BLOOD, URINE NEGATIVE Ery/uL (NEGATIVE); COLOR,URINE YELLOW (YELLOW); KETONES,URINE NEGATIVE (NEGATIVE); LEUKOCYTE ESTERASE ,URINE 1+ (NEGATIVE); NITRITE, URINE POSITIVE (NEGATIVE); PH,URINE 5.5 (5.0-8.0); PROTEIN,URINE NEGATIVE (NEGATIVE); UGLUCOSE TRACE mg/dL (NEGATIVE); UROBILINOGEN,URINE 0.2 EU/dL (0.2)
[2023-09-06 01:44] LABS: ADD URINE CULTURE YES; BACTERIA,URINE Moderate /HPF (None Seen); SQUAMOUS EPITHELIAL CELL,UR Rare /HPF (None Seen); WBC,URINE 21-50 /HPF (0-3)
[2023-09-06] MEDS ORDERED: CIPR-262 PO (02:17)
[2023-09-06] MEDS ORDERED: CIPROFLOXACIN HCL 500 MG TABLET PO ONE (02:30)
[2023-09-06] MEDS ORDERED: CIPROFLOXACIN HCL 500 MG TABLET ONE (02:55)
[2023-09-06 02:58] VITALS: BP 133/80; TEMP 98; O2SAT 98
== END 2023-09-06 02:58 | disposition home or self-care (01) ==
LOC: ER 23:31
DX: N39.0 Urinary tract infection, site not specified (principal); R33.9 Retention of urine, unspecified; Z60.2 Problems related to living alone
CPT/HCPCS: 81001; 87086-TC

== ENCOUNTER 2023-11-14 11:20 | Emergency (ER) | payer MEDICARE, OTHER ==
[~2023-11-14] VITALS: Ht 167.6 cm; Wt 65.3 kg
[2023-11-14 11:25] VITALS: BP 120/67; TEMP 97.9
[2023-11-14 12:19] LABS: APPEARANCE,URINE CLOUDY (CLEAR); BILIRUBIN,URINE NEGATIVE (NEGATIVE); BLOOD, URINE 2+ Ery/uL (NEGATIVE); COLOR,URINE YELLOW (YELLOW); KETONES,URINE NEGATIVE (NEGATIVE); LEUKOCYTE ESTERASE ,URINE 3+ (NEGATIVE); NITRITE, URINE POSITIVE (NEGATIVE); PROTEIN,URINE 2+ mg/dl (NEGATIVE); UGLUCOSE NEGATIVE (NEGATIVE); UROBILINOGEN,URINE 0.2 EU/dL (0.2)
[2023-11-14] MEDS ORDERED: CEFD300C3 PO (12:46)
[2023-11-14 12:49] LABS: ADD URINE CULTURE YES; BACTERIA,URINE Many /HPF (None Seen); SQUAMOUS EPITHELIAL CELL,UR Few /HPF (None Seen); WBC,URINE TOO NUMEROUS TO COUN /HPF (0-3)
[2023-11-14 12:52] VITALS: O2SAT 97
== END 2023-11-14 12:53 | disposition home or self-care (01) ==
LOC: ER 11:27
DX: T83.091A Other mechanical complication of indwelling urethral catheter, initial encounter (principal); N39.0 Urinary tract infection, site not specified
CPT/HCPCS: 81001; 87086-TC

== ENCOUNTER 2024-01-05 09:04 | Emergency (ER) | payer MEDICARE, OTHER ==
[~2024-01-05] VITALS: Ht 165.1 cm; Wt 65.3 kg
[~2024-01-05 09:04] MED LIST changes: +CEFD300C3 PO
[2024-01-05 09:07] VITALS: BP 119/69; TEMP 98.2; O2SAT 98
== END 2024-01-05 09:31 | disposition home or self-care (01) ==
LOC: ER 09:06
DX: T83.091A Other mechanical complication of indwelling urethral catheter, initial encounter (principal); Z46.6 Encounter for fitting and adjustment of urinary device; Z60.2 Problems related to living alone; Z79.899 Other long term (current) drug therapy

== ENCOUNTER 2024-02-25 08:23 | Emergency (ER) | payer MEDICARE, OTHER ==
[~2024-02-25] VITALS: Ht 170.2 cm; Wt 74.8 kg
[2024-02-25 09:15] VITALS: BP 130/68; TEMP 98; O2SAT 97
== END 2024-02-25 09:16 | disposition home or self-care (01) ==
LOC: ER 08:28
DX: Z46.6 Encounter for fitting and adjustment of urinary device (principal); N40.0 Benign prostatic hyperplasia without lower urinary tract symptoms; R33.9 Retention of urine, unspecified; Z60.2 Problems related to living alone

== ENCOUNTER 2024-04-15 23:16 | Emergency (ER) | payer MEDICARE, OTHER ==
[~2024-04-15] VITALS: Ht 175.3 cm; Wt 68.0 kg
[2024-04-16 01:27] VITALS: BP 142/88; TEMP 98.8; O2SAT 98
== END 2024-04-16 01:28 | disposition home or self-care (01) ==
LOC: ER 23:17
DX: T83.028A Displacement of other urinary catheter, initial encounter (principal); R33.9 Retention of urine, unspecified; Z60.2 Problems related to living alone; Y84.6 Urinary catheterization as the cause of abnormal reaction of the patient, or of later complication, without mention of misadventure at the time of the procedure; Y92.89 Other specified places as the place of occurrence of the external cause

== ENCOUNTER 2024-07-11 01:10 | Emergency (ER) | payer MEDICARE, OTHER ==
[~2024-07-11] VITALS: Ht 167.6 cm; Wt 72.6 kg
[2024-07-11 02:55] LABS: APPEARANCE,URINE CLOUDY (CLEAR); BILIRUBIN,URINE NEGATIVE (NEGATIVE); BLOOD, URINE 1+ Ery/uL (NEGATIVE); COLOR,URINE YELLOW (YELLOW); KETONES,URINE NEGATIVE (NEGATIVE); LEUKOCYTE ESTERASE ,URINE 2+ (NEGATIVE); NITRITE, URINE POSITIVE (NEGATIVE); PROTEIN,URINE 1+ mg/dl (NEGATIVE); UGLUCOSE 1+ mg/dL (NEGATIVE); UROBILINOGEN,URINE 0.2 EU/dL (0.2)
[2024-07-11] MEDS ORDERED: CEPH500C2 PO (03:11)
[2024-07-11 03:18] LABS: ADD URINE CULTURE YES; BACTERIA,URINE 4+ /HPF (None Seen); MUCUS,URINE Moderate /LPF (None Seen); RBC,URINE NONE SEEN /HPF (0-2); SQUAMOUS EPITHELIAL CELL,UR None Seen /HPF (None Seen); WBC,URINE 51-80 /HPF (0-3)
[2024-07-11 03:20] VITALS: BP 157/97; TEMP 98; O2SAT 99
== END 2024-07-11 03:20 | disposition home or self-care (01) ==
LOC: ER 01:10
DX: T83.098A Other mechanical complication of other urinary catheter, initial encounter (principal); R33.8 Other retention of urine; N39.0 Urinary tract infection, site not specified; Z60.2 Problems related to living alone; Z87.430 Personal history of prostatic dysplasia; Y84.8 Other medical procedures as the cause of abnormal reaction of the patient, or of later complication, without mention of misadventure at the time of the procedure; Y92.89 Other specified places as the place of occurrence of the external cause
CPT/HCPCS: 81001

== ENCOUNTER 2024-09-06 14:48 | Emergency (ER) | payer MEDICARE, OTHER ==
[~2024-09-06] VITALS: Ht 167.6 cm; Wt 72.6 kg
[2024-09-06 16:05] VITALS: TEMP 98.2
[2024-09-06] MEDS ORDERED: LIDOCAINE 2% JEL UROJET 10 ML MM ONE (17:30)
[2024-09-06] MEDS ORDERED: WATER FOR INJECTION,STERILE 10 ML ONE (17:47)
[2024-09-06 18:28] VITALS: BP 115/70; O2SAT 97
== END 2024-09-06 18:19 | disposition home or self-care (01) ==
LOC: ER 14:54
DX: T83.098A Other mechanical complication of other urinary catheter, initial encounter (principal); N40.1 Benign prostatic hyperplasia with lower urinary tract symptoms; R33.8 Other retention of urine; Z60.2 Problems related to living alone; Y84.8 Other medical procedures as the cause of abnormal reaction of the patient, or of later complication, without mention of misadventure at the time of the procedure; Y92.89 Other specified places as the place of occurrence of the external cause
CPT/HCPCS: 99284; 51702; J3490

== ENCOUNTER 2024-10-15 22:43 | Emergency (ER) | payer MEDICARE, OTHER ==
[~2024-10-15] VITALS: Ht 167.6 cm; Wt 72.6 kg
[2024-10-16 01:23] LABS: APPEARANCE,URINE CLOUDY (CLEAR); BILIRUBIN,URINE NEGATIVE (NEGATIVE); BLOOD, URINE 2+ Ery/uL (NEGATIVE); COLOR,URINE YELLOW (YELLOW); KETONES,URINE NEGATIVE (NEGATIVE); LEUKOCYTE ESTERASE ,URINE 2+ (NEGATIVE); NITRITE, URINE POSITIVE (NEGATIVE); PROTEIN,URINE TRACE mg/dl (NEGATIVE); UGLUCOSE NEGATIVE (NEGATIVE); UROBILINOGEN,URINE 0.2 EU/dL (0.2)
[2024-10-16] MEDS ORDERED: CIPROFLOXACIN HCL 500 MG TABLET ONE (01:29)
[2024-10-16 01:30] LABS: ADD URINE CULTURE YES; BACTERIA,URINE Moderate /HPF (None Seen); SQUAMOUS EPITHELIAL CELL,UR Rare /HPF (None Seen); WBC,URINE 21-50 /HPF (0-3)
[2024-10-16] MEDS: CIPROFLOXACIN HCL 500 MG TABLET PO ONE (01:36)
[2024-10-16 01:38] VITALS: BP 170/79; TEMP 209.1; O2SAT 97
== END 2024-10-16 01:38 | disposition home or self-care (01) ==
LOC: ER 22:48
DX: N40.1 Benign prostatic hyperplasia with lower urinary tract symptoms (principal); N39.0 Urinary tract infection, site not specified; R33.8 Other retention of urine; Z60.2 Problems related to living alone
CPT/HCPCS: 81001

== ENCOUNTER 2024-12-13 12:10 | Emergency (ER) | payer MEDICARE, OTHER ==
[~2024-12-13] VITALS: Ht 167.6 cm; Wt 72.6 kg
[2024-12-13 12:23] VITALS: BP 110/65; TEMP 97.9; O2SAT 98
== END 2024-12-13 12:45 | disposition home or self-care (01) ==
LOC: ER 12:17
DX: R33.9 Retention of urine, unspecified (principal); N40.1 Benign prostatic hyperplasia with lower urinary tract symptoms; Z96.0 Presence of urogenital implants; Z60.2 Problems related to living alone

== ENCOUNTER 2024-12-14 01:35 | Emergency (ER) | payer MEDICARE, OTHER ==
[~2024-12-14] VITALS: Ht 167.6 cm; Wt 72.6 kg
[2024-12-14] MEDS ORDERED: LIDOCAINE 2% JEL UROJET 10 ML MM ONE (02:21)
[2024-12-14] MEDS: LIDOCAINE 2% JEL UROJET 10 ML MM ONE (02:34)
[2024-12-14 02:58] LABS: APPEARANCE,URINE SLIGHTLY CLOUDY (CLEAR); BILIRUBIN,URINE NEGATIVE (NEGATIVE); BLOOD, URINE TRACE-INTA Ery/uL (NEGATIVE); COLOR,URINE YELLOW (YELLOW); KETONES,URINE NEGATIVE (NEGATIVE); LEUKOCYTE ESTERASE ,URINE 2+ (NEGATIVE); NITRITE, URINE POSITIVE (NEGATIVE); PROTEIN,URINE NEGATIVE (NEGATIVE); UGLUCOSE NEGATIVE (NEGATIVE); UROBILINOGEN,URINE 0.2 EU/dL (0.2)
[2024-12-14] MEDS ORDERED: NITROFURANTOIN/MONOHYDRATE MACROCRYSTALS 100 MG CAPSULE ONE (03:13)
[2024-12-14 03:17] LABS: ADD URINE CULTURE YES; BACTERIA,URINE Moderate /HPF (None Seen); RBC,URINE 0-2 /HPF (0-2); SQUAMOUS EPITHELIAL CELL,UR Few /HPF (None Seen)
[2024-12-14 03:21] VITALS: BP 133/80; TEMP 98; O2SAT 98
[2024-12-14] MEDS ORDERED: NITROFURANTOIN/MONOHYDRATE MACROCRYSTALS 100 MG CAPSULE PO ONE (03:30)
== END 2024-12-14 03:21 | disposition home or self-care (01) ==
LOC: ER 01:37
DX: N30.90 Cystitis, unspecified without hematuria (principal); R33.8 Other retention of urine; N40.1 Benign prostatic hyperplasia with lower urinary tract symptoms; Z79.899 Other long term (current) drug therapy
CPT/HCPCS: 81001; 87086-TC; 87186-TC; J3490

== ENCOUNTER 2025-02-01 17:20 | Emergency (ER) | payer MEDICARE, OTHER ==
[~2025-02-01] VITALS: Ht 167.6 cm; Wt 72.6 kg
[2025-02-01 19:59] VITALS: BP 115/66; TEMP 98.3; O2SAT 99
== END 2025-02-01 20:00 | disposition home or self-care (01) ==
LOC: ER 17:23
DX: R33.8 Other retention of urine (principal); Z46.6 Encounter for fitting and adjustment of urinary device; Z79.899 Other long term (current) drug therapy

== ENCOUNTER 2025-02-07 22:08 | Emergency (ER) | payer MEDICARE, OTHER ==
[~2025-02-07] VITALS: Ht 165.1 cm; Wt 72.6 kg
[2025-02-07 22:29] VITALS: BP 136/87; TEMP 98.2; O2SAT 96
== END 2025-02-08 00:58 | disposition home or self-care (01) ==
LOC: ER 22:13
DX: T83.098A Other mechanical complication of other urinary catheter, initial encounter (principal); R33.8 Other retention of urine; N40.1 Benign prostatic hyperplasia with lower urinary tract symptoms; Z60.2 Problems related to living alone; Y84.8 Other medical procedures as the cause of abnormal reaction of the patient, or of later complication, without mention of misadventure at the time of the procedure; Y92.89 Other specified places as the place of occurrence of the external cause

== ENCOUNTER 2025-04-18 15:42 | Emergency (ER) | payer MEDICARE, OTHER ==
[~2025-04-18] VITALS: Ht 167.6 cm; Wt 72.6 kg
[2025-04-18 16:37] VITALS: BP 112/61; TEMP 98; O2SAT 98
== END 2025-04-18 16:37 | disposition home or self-care (01) ==
LOC: ER 15:46
DX: N40.0 Benign prostatic hyperplasia without lower urinary tract symptoms (principal); Z46.6 Encounter for fitting and adjustment of urinary device; Z60.2 Problems related to living alone

== ENCOUNTER 2025-04-19 03:59 | Emergency (ER) | payer MEDICARE, OTHER ==
[~2025-04-19] VITALS: Ht 172.7 cm; Wt 77.1 kg
[2025-04-19 04:11] VITALS: BP 143/70; TEMP 98.7; O2SAT 99
[2025-04-19] MEDS ORDERED: LIDOCAINE 2% JEL UROJET 10 ML MM ONE (04:14)
[2025-04-19] MEDS: LIDOCAINE 2% JEL UROJET 10 ML MM ONE (05:02)
[2025-04-19 05:33] LABS: APPEARANCE,URINE SLIGHTLY CLOUDY (CLEAR); BLOOD, URINE 3+ Ery/uL (NEGATIVE); LEUKOCYTE ESTERASE ,URINE 2+ (NEGATIVE); NITRITE, URINE POSITIVE (NEGATIVE); UGLUCOSE NEGATIVE (NEGATIVE)
[2025-04-19 05:36] LABS: ADD URINE CULTURE YES; SQUAMOUS EPITHELIAL CELL,UR Rare /HPF (None Seen)
[2025-04-19] MEDS ORDERED: NITROFURANTOIN/MONOHYDRATE MACROCRYSTALS 100 MG CAPSULE ONE (05:41)
[2025-04-19] MEDS ORDERED: NITROFURANTOIN/MONOHYDRATE MACROCRYSTALS 100 MG CAPSULE PO ONE (06:00)
== END 2025-04-19 06:00 | disposition home or self-care (01) ==
LOC: ER 04:01
DX: R33.8 Other retention of urine (principal); N30.90 Cystitis, unspecified without hematuria; N40.1 Benign prostatic hyperplasia with lower urinary tract symptoms; Z60.2 Problems related to living alone; Z79.899 Other long term (current) drug therapy
CPT/HCPCS: 99284; 51702; 87077; 87086; 87186; 81001; J3490

== ENCOUNTER 2025-07-21 10:13 | Emergency (ER) | payer BC, MEDICAID ==
[~2025-07-21] VITALS: Ht 165.1 cm; Wt 72.6 kg
[2025-07-21 10:18] VITALS: BP 104/57; TEMP 98.3; O2SAT 99
== END 2025-07-21 11:19 | disposition home or self-care (01) ==
LOC: ER 10:24
DX: Z46.6 Encounter for fitting and adjustment of urinary device (principal)

== ENCOUNTER 2025-09-21 08:00 | Emergency (ER) | payer BC, MEDICAID ==
[~2025-09-21] VITALS: Ht 165.1 cm; Wt 72.6 kg
[2025-09-21 08:06] VITALS: BP 107/52; TEMP 98.1
[2025-09-21 09:03] VITALS: O2SAT 97
== END 2025-09-21 09:03 | disposition home or self-care (01) ==
LOC: ER 08:02
DX: N40.1 Benign prostatic hyperplasia with lower urinary tract symptoms (principal); Z46.6 Encounter for fitting and adjustment of urinary device